=== PATIENT | female | born 1985 | race African-American/Black ===

== ENCOUNTER 2017-07-11 13:50 | Observation (INO) ==
[2017-07-11 12:52] LABS: Bilirubin,Urine Negative (Negative); Blood,Urine Large (Negative); Clarity,Urine Clear (Clear); Color,Urine Yellow (Yellow); Glucose,Urine (UA) Normal (Normal); Ketones,Urine Negative (Negative); Leukocyte Esterase,Urine Negative (Negative); Nitrite,Urine Negative (Negative); PH,Urine 6.5 pH Units (5.0-8.0); Protein,Urine Negative (Neg-Trace); Specific Gravity,Urine 1.006 (1.010-1.025); Urobilinogen,Urine Normal (Normal)
[2017-07-11 13:11] LABS: Squamous Epithelial Cell,Urine Few per lpf (None-Few)
[2017-07-11 13:12] LABS: Amorphous Sediment,Urine Few (Few)
[~2017-07-11 13:50] MED LIST: Ringers Solution, Lactated 1,000 ML IVC SCH; Ringers Solution, Lactated 1,000 ML ONE
--- NOTE | 2017-07-11 14:55 | OB/GYN History & Physical ---
Date of Encounter: 07/11/17 Time of Encounter: 12:00 Assessment and Plan (1) 28 weeks gestation of Current visit: Yes Status: Acute (2) Vaginal bleeding during , antepartum Current visit: Yes Status: Acute IV fluid bolus - complete Urinalysis - blood, contaminated Transabdominal/transvaginal ultrasound - results pending Reactive NST for gestational age POC per consult with Dr Diamond. History of Present Illness Chief complaint: Vaginal Bleeding HPI: Ms. Dawkins is a 32 year old at 28 weeks and 3 days gestation that arrives to labor and delivery triage with c/o movement and vaginal bleeding that began this morning. She denies any recent falls and/or trauma to her abdomen. She denies intercourse in the past 48 hours. She denies headache, vision changes, epigastric pain, vaginal discharge, leaking of fluid, and cramping/contractions. All labs were reviewed from and history from [facility] in [place] prior to relocation to [place]. Blood type O+ / negative antibody Hemoglobin S negative (FOB sickle cell carrier) HIV nonreactive Hep B nonreactive RPR negative Rubella immune CF negative Medical history Ulcerative colitis with colectomy in 2003 Past Med Surg Social Fam HX - Past Medical History Medical history: other Psychiatric history: no psych history - Past Surgical History Surgical History: colectomy - Social History Smoking Status: Never smoker Alcohol use: none Drug use: unknown - Family History Mother Living Status: Still Living Hx Family Cardiac Disorders: Yes (hypertension) Obstetrical History - Pregnancies : 1 Para: 0 Term: 0 : 0 Ab's: 0 Livin Medications and Allergies Vit Calc,Iron,Folic [ Vitamins] 1 tab PO DAILY 07/11/17 [ History] 3 Allergy/AdvReac Type Severity Reaction Status Date / Time No Known Allergies Allergy Verified 07/11/17 12:14 Review of System OB All systems PM: reviewed and no additional remarkable complaints except as stated Exam - Constitutional Constitutional: well developed, well nourished, no acute distress, average body habitus - HEENT HEENT: Normocephaly, Mucus Membranes Moist - Neck Neck exam: full ROM - Lungs Respiratory exam: CTAB - Cardiovascular Cardiovascular exam: RRR, +S1, +S2 - Abdomen Abdomen: Present: bowel sounds normal, gravid, non tender - Extremities Extremities exam: normal capillary refill, normal inspection, radial pulses palpable and symmetrical Deep Tendon Reflex Grade: 2+ Normal - Vulva Vulva: bilateral: normal - Vagina Vagina: Present: normal moisture (Scant amount of farrah blood) - Uterus Uterus exam: Present: normal size, normal contour. Absent: tender - Anus/Rectum Anus/Rectum: Present: normal perianal skin - Comments Comments: SSE - Cervix visually closed, Appears bruised. Scant amount of farrah blood in vaginal vault no clots noted SVE - Closed, thick, and high Results Abnormal lab results Ur Specific [place] 1.006 (1.010-1.025) L 07/11/17 12:45 Urine Blood Large (Negative) H 07/11/17 12:45 All other labs normal. - VTE Reasons for not Prescribing Prophylaxis: Treatment not Indicated - Low risk for VTE
[2017-07-11 14:57] LABS: Amphetamine Screen,Urine Negative ng/mL (Cutoff=1000); Barbiturate Screen,Urine Negative ng/mL (Cutoff=200); Benzodiazepines Screen,Urine Negative ng/mL (Cutoff=200); Cannabinoid Screen,Urine Negative ng/mL (Cutoff = 50); Cocaine Screen,Urine Negative ng/mL (Cutoff= 300); Opiate Screen,Urine Negative ng/mL (Cutoff=300); Phencyclidine Screen,Urine Negative ng/mL (Cutoff=25)
[2017-07-11 15:21] LABS: Basophils % 0.3 %; Eosinophils # 0.1 K/mcL (0.0-0.6); Eosinophils % 0.8 %; Hematocrit 32.2 % (35.3-44.9); Hemoglobin 10.6 g/dL (11.5-15.4); Immature Granulocytes % 0.7 % (0-4); Lymphocytes # 2.3 K/mcL (0.6-4.6); Mean Corpuscular HGB Conc 32.9 g/dL (31.6-35.5); Mean Corpuscular Hemoglobin 29.3 pg (28.0-33.3); Mean Platelet Volume 11.2 fL (9.4-12.4); Monocytes % 10.6 %; Neutrophils # 6.2 K/mcL (1.6-8.9); Platelet Count 290 K/mcL (140-400); Red Blood Count 3.62 M/mcL (3.82-4.97); Segmented Neutrophils % 63.6 %
[2017-07-11] MEDS ORDERED: Betamethasone Acet/SodPhos 6 MG/ML MDV IM SCH (15:30)
--- NOTE | 2017-07-11 16:45 | OB/GYN Progress Note ---
Date of Encounter: 07/11/17 Time of Encounter: 16:44 - Assessment and Plan (1) Placental abruption in third trimester Status: Acute The differential includes intraplacental hematoma. The patient has minimal bleeding and is without pain or contractions. Plan is transferred to [facility] after steroids for further evaluation, monitoring and need for emergent delivery at 28 weeks (2) 28 weeks gestation of Status: Acute Patient receives care of Dr. Francisco after transfer at 11 weeks from [place] (3) Vaginal bleeding during , antepartum Status: Acute Patient denies any initiating events including intercourse or abdominal trauma. Bleeding minimal at this time Subjective - Subjective Principal diagnosis: 28 wks w/ vaaginal bleeding Interval history: The patient reports no pain or abdominal cramping. She appreciates an active fetus. Her bleeding has been minimal. Ultrasound findings were reviewed with the patient and . Images were reviewed on PACS and findings were discussed with radiology. The differential diagnosis is an abruptio placenta versus intraplacental hematoma. I discussed with the patient and the possibility of need for an early delivery versus a labor situation and need for care of a 28 week which would be more appropriately obtained at a higher level of care. It was explained that [facility] has a level II nursery with care starting at 32 weeks unless it is an emergency. The patient and verbalize understanding and plan of care which will be a transfer to [facility]. The recommendation for a dose of steroids to be given now was reviewed with the patient and as well. Its use for accelerating lung maturity was discussed. Antepartum ROS: vaginal bleeding, movement normal, no new complaints, no loss of fluid, no contractions Objective - Vital Signs Vital Signs: Intake and Output 07/11/17 07/11/17 07/11/17 07:59 15:59 23:59 Other: Weight 74.3 kg Patient Weight 07/11/17 23:59 Weight 74.3 kg - Exam FHR: auscultation normal (428 week fetus) FHR comments: No contractions noted on NST Abdomen: Present: normal appearance, gravid - Labs Labs: Abnormal lab results RBC 3.62 M/mcL (3.82-4.97) L 07/11/17 13:05 Hgb 10.6 g/dL (11.5-15.4) L 07/11/17 13:05 Hct 32.2 % (35.3-44.9) L 07/11/17 13:05 Ur Specific [place] 1.006 (1.010-1.025) L 07/11/17 12:45 Urine Blood Large (Negative) H 07/11/17 12:45 - Allied health notes Allied health notes reviewed: nursing
== END 2017-07-11 16:00 ==
LOC: 1NENULAB
PROVIDERS: ADMIT Obstetrics & Gynecology; ATTEND Obstetrics & Gynecology

== ENCOUNTER → 2019-12-14 22:54 | Observation (INO) | END | disposition home or self-care (01) | LOC: 1NENULAB | PROVIDERS: ADMIT Obstetrics & Gynecology; ATTEND Obstetrics & Gynecology ==

== ENCOUNTER 2020-02-05 08:11 | Inpatient (IN) ==
[2020-02-05] MEDS ORDERED: Metoclopramide 10 MG/2 ML VIAL IVP ONE (08:25)
[2020-02-05] MEDS ORDERED: Famotidine 20 MG/2 ML VIAL IVP ONE (08:25)
[2020-02-05] MEDS ORDERED: Ringers Solution, Lactated 1,000 ML IVC ONE (08:25)
[2020-02-05] MEDS ORDERED: CeFAZolin 2,000 MG/50 ML BAG IVPB ONE (08:25)
[2020-02-05] MEDS ORDERED: Ringers Solution, Lactated 1,000 ML IVC SCH (08:30)
[2020-02-05] MEDS ORDERED: Oxytocin 20 units/ LR 1000 mL 20 UNIT/1,000 ML BAG IVC ONE ×2 (08:57→12:03)
[2020-02-05] MEDS ORDERED: *HR* Morphine Sulfate/PF 10 MG/10 ML AMPUL ONE (09:28)
[2020-02-05] MEDS ORDERED: EPHEDrine 50 MG/ML VIAL ONE ×2 (09:28→10:22)
[2020-02-05] MEDS ORDERED: *HR* FentaNYL (PF) 100 MCG/2 ML VIAL ONE (09:28)
[2020-02-05 09:30] LABS: Basophils % 0.2 %; Eosinophils # 0.1 K/mcL (0.0-0.6); Eosinophils % 0.6 %; Hematocrit 36.4 % (35.3-44.9); Hemoglobin 11.7 g/dL (11.5-15.4); Immature Granulocytes % 0.6 % (0-4); Lymphocytes % 35.5 %; Mean Corpuscular HGB Conc 32.1 g/dL (31.6-35.5); Mean Corpuscular Hemoglobin 28.5 pg (28.0-33.3); Mean Corpuscular Volume 88.8 fL (83.0-100.0); Mean Platelet Volume 11.6 fL (9.4-12.4); Monocytes % 11.6 %; Neutrophils # 4.3 K/mcL (1.6-8.9); Platelet Count 210 K/mcL (140-400); Red Cell Distribution Width 12.6 % (11.5-14.5); Segmented Neutrophils % 51.5 %; White Blood Count 8.3 K/mcL (4.3-11.1)
[2020-02-05] MEDS ORDERED: Acetaminophen IV 1,000 MG/100 ML INFUS..BTL ONE (09:30)
[2020-02-05] MEDS ORDERED: Ondansetron 4 MG/2 ML VIAL ONE ×2 (09:30→13:02)
[2020-02-05 09:34] LABS: Amphetamine Screen,Urine Negative ng/mL (Cutoff=1000); Barbiturate Screen,Urine Negative ng/mL (Cutoff=200); Benzodiazepines Screen,Urine Negative ng/mL (Cutoff=200); Cannabinoid Screen,Urine Negative ng/mL (Cutoff = 50); Cocaine Screen,Urine Negative ng/mL (Cutoff= 300); Opiate Screen,Urine Negative ng/mL (Cutoff=300); Phencyclidine Screen,Urine Negative ng/mL (Cutoff=25)
[2020-02-05] MEDS ORDERED: Ondansetron 4 MG/2 ML VIAL IVP ONE ×2 (09:38→13:01)
[2020-02-05] MEDS ORDERED: *HR* Promethazine 25 MG/ML VIAL IVP PRN (09:38)
[2020-02-05] MEDS ORDERED: *HR* Oxytocin 10 UNIT/ML VIAL IM ONE (10:29)
[2020-02-05] MEDS: *HR* HYDROmorphone PF 0.5 MG/0.5 ML SYRINGE IVP PRN ×2 (12:41→13:07)
[2020-02-05] MEDS ORDERED: Simethicone 80 MG TAB.CHEW PO PRN (13:59)
[2020-02-05] MEDS ORDERED: Acetaminophen 325 MG TABLET PO PRN (13:59)
[2020-02-05] MEDS ORDERED: Metoclopramide 10 MG/2 ML VIAL IVP PRN (13:59)
[2020-02-05] MEDS ORDERED: *HR* OxyCODONE/APAP 5/325 TABLET PO PRN (13:59)
[2020-02-05] MEDS ORDERED: Naloxone 0.4 MG/ML INJ IVP PRN (13:59)
[2020-02-05] MEDS ORDERED: DICLEGIS PO PRN (13:59)
[2020-02-05] MEDS ORDERED: Sennosides 8.6 MG TABLET PO PRN (13:59)
[2020-02-05] MEDS ORDERED: Oxytocin 20 units/ LR 1000 mL 20 UNIT/1,000 ML BAG IVC SCH ×2 (13:59)
[2020-02-05] MEDS ORDERED: Ondansetron 4 MG/2 ML VIAL IVP PRN (13:59)
[2020-02-05] MEDS: *HR* HYDROmorphone (PF) 1 MG/ML SYRINGE IVP PRN ×3 (17:28→23:53)
[2020-02-05] MEDS: Budesonide/Formoterol 80/4.5 1 PUFF INH IH SCH (19:28)
[2020-02-06] MEDS: Ibuprofen 600 MG TABLET PO PRN ×2 (01:07→17:40)
[2020-02-06] MEDS: *HR* HYDROmorphone (PF) 1 MG/ML SYRINGE IVP PRN ×3 (01:07→09:54)
[2020-02-06] MEDS ORDERED: Prenatal Vit/FA 1 EACH TABLET PO SCH (09:00)
[2020-02-06] MEDS: Budesonide/Formoterol 80/4.5 1 PUFF INH IH SCH ×2 (10:55→19:39)
[2020-02-06] MEDS: *HR* OxyCODONE Immed Rel 5 MG TABLET PO PRN ×3 (14:34→22:21)
[2020-02-07] MEDS: *HR* OxyCODONE Immed Rel 5 MG TABLET PO PRN ×3 (02:29→10:14)
[2020-02-07 07:55] VITALS: BP 109/72
== END 2020-02-07 12:01 | disposition home or self-care (01) | DRG 788 ==
LOC: SAMDAY 08:11 → 1NENULAB 08:15 → 1NENUOBS 13:48
PROVIDERS: ADMIT Obstetrics & Gynecology; ATTEND Obstetrics & Gynecology